=== PATIENT | female | born 1955 | race American Indian/Alaskan Native ===

== ENCOUNTER 2021-01-01 17:23 | Emergency (ER) | payer SELFPAY ==
[2021-01-01] MEDS ORDERED: LORazepam 2 MG TAB PO PRN ×2 (18:24)
[2021-01-01] MEDS ORDERED: NICOTINE 14 MG/24 HR PATCH TD ONE (18:29)
--- NOTE | 2021-01-01 18:30 | Emergency Department Report ---
Blank Doc - Documentation Documentation: 65-year-old female presents to the hospital for medical clearance for admission to [facility] for alcohol detox. Sent by Patient drinks liquor daily. Last drink prior to arrival. No history of withdrawal symptoms but has not stopped drinking long enough to develop wi thdrawal symptoms. Denies previous medical history. Positive smoker. BP elevated. Heart rate elevated Psych labs ordered for medical clearance. Banana bag IV fluids ordered. EKG requested. ciwa protocol ordered.
[2021-01-01 18:56] LABS: Basophils # (Auto) 0.1 K/mm3 (0.0-0.1); Basophils % (Auto) 0.6 % (0.0-1.8); Eosinophils # (Auto) 0.1 K/mm3 (0.0-0.4); Eosinophils % (Auto) 0.6 % (0.0-4.3); Hematocrit 47.2 % (30.3-42.9); Hemoglobin 15.7 gm/dl (10.1-14.3); Lymphocytes # (Auto) 2.3 K/mm3 (1.2-5.4); Lymphocytes % (Auto) 28.7 % (13.4-35.0); Mean Corpuscular HGB Conc 33 % (30-34); Mean Corpuscular Volume 103 fl (79-97); Monocytes # (Auto) 0.6 K/mm3 (0.0-0.8); Monocytes % (Auto) 7.6 % (0.0-7.3); Platelet Count 240 K/mm3 (140-440); Red Blood Count 4.56 M/mm3 (3.65-5.03); Red Cell Distribution Width 14.5 % (13.2-15.2)
[2021-01-01] MEDS ORDERED: THIAMINE 100 MG, FOLIC ACID 1 MG, MULTIPLE VITAMIN INJ, ADULT 10 ML in SODIUM CHLORIDE ... IV ONE (19:00)
[2021-01-01 19:11] LABS: Alanine Aminotransferase < 5 units/L (7-56); BUN/Creatinine Ratio 25; Blood Urea Nitrogen 10 mg/dL (7-17); Calcium 9.3 mg/dL (8.4-10.2); Hemolysis Index 125
[2021-01-01] MEDS ORDERED: SODIUM CHLORIDE 0.9% 1000 ML 1,000 ML IV ONE (22:20)
--- NOTE | 2021-01-02 00:48 | Emergency Department Report ---
ED General Adult HPI - General Chief complaint: Alcohol Stated complaint: MEDICAL CLEARANCE Time Seen by Provider: 01/01/21 19:10 Source: patient, family Mode of arrival: Wheelchair Limitations: Altered Mental Status - History of Present Illness Initial comments: The patient presents to the emergency department after being evaluated [facility] for medical clearance. Patient went to [facility] for alcohol detox and upon her arrival she was sent to the emergency department for medical evaluation. Patient has no complaints she denies chest pain, shortness breath, or headache. Patient states she drunk alcohol within the last 8 hours. -: unknown Severity scale (0 -10): 0 Improves with: none Worsens with: none Associated Symptoms: denies other symptoms Treatments Prior to Arrival: none - Related Data Allergies Allergy/AdvReac Type Severity Reaction Status Date / Time aspirin AdvReac Unknown Verified 01/01/21 17:34 ED Review of Systems ROS: Stated complaint: MEDICAL CLEARANCE Other details as noted in HPI Constitutional: denies: chills, fever Eyes: denies: eye pain, eye discharge, vision change ENT: denies: ear pain, throat pain Respiratory: denies: cough, shortness of breath, wheezing Cardiovascular: denies: chest pain, palpitations Endocrine: no symptoms reported Gastrointestinal: denies: abdominal pain, nausea, diarrhea Genitourinary: denies: urgency, dysuria, discharge Musculoskeletal: denies: back pain, joint swelling, arthralgia Skin: denies: rash, lesions Neurological: denies: headache, weakness, paresthesias Psychiatric: denies: anxiety, depression Hematological/Lymphatic: denies: easy bleeding, easy bruising ED Physical Exam - General Limitations: Altered Mental Status General appearance: alert, in no apparent distress - Head Head exam: Present: atraumatic, normocephalic - Eye Eye exam: Present: normal appearance, PERRL, EOMI - ENT ENT exam: Present: mucous membranes dry - Neck Neck exam: Present: normal inspection - Respiratory Respiratory exam: Present: normal lung sounds bilaterally. Absent: respiratory distress - Cardiovascular Cardiovascular Exam: Present: regular rate, tachycardia. Absent: systolic murmur, diastolic murmur, rubs, gallop - GI/Abdominal GI/Abdominal exam: Present: soft, normal bowel sounds. Absent: distended, tenderness - Extremities Exam Extremities exam: Present: normal inspection - Back Exam Back exam: Present: normal inspection - Neurological Exam Neurological exam: Present: alert, oriented X3, CN II-XII intact. Absent: motor sensory deficit - Psychiatric Psychiatric exam: Present: normal affect, normal mood - Skin Skin exam: Present: warm, dry, intact, normal color. Absent: rash ED Course Vital Signs 01/01/21 01/01/21 01/01/21 17:35 20:41 20:45 Temperature 98.2 F Pulse Rate 118 H 127 H 115 H Respiratory 18 33 H 19 Rate Blood Pressure 152/112 [Left] O2 Sat by Pulse 97 85 Oximetry 01/01/21 01/01/21 01/01/21 21:01 21:15 21:31 Temperature Pulse Rate 116 H 110 H 101 H Respiratory 25 H 25 H 28 H Rate Blood Pressure [Left] O2 Sat by Pulse 100 100 99 Oximetry 01/01/21 01/01/21 01/01/21 21:45 22:01 22:15 Temperature Pulse Rate 106 H 104 H 99 H Respiratory 27 H 28 H 25 H Rate Blood Pressure [Left] O2 Sat by Pulse 100 100 100 Oximetry 01/01/21 01/01/21 01/01/21 22:31 22:45 23:01 Temperature Pulse Rate 108 H 108 H 106 H Respiratory 25 H 27 H 26 H Rate Blood Pressure [Left] O2 Sat by Pulse 100 100 99 Oximetry 01/01/21 01/01/21 01/01/21 23:15 23:31 23:45 Temperature Pulse Rate 108 H 107 H 103 H Respiratory 27 H 26 H 15 Rate Blood Pressure [Left] O2 Sat by Pulse 98 99 100 Oximetry ED Medical Decision Making - Lab Data Result diagrams: 01/01/21 18:27 01/01/21 18:27 Lab Results 01/01/21 01/01/21 01/01/21 Range/Units 18:27 18:27 18:27 WBC 8.1 (4.5-11.0) K/mm3 RBC 4.56 (3.65-5.03) M/mm3 Hgb 15.7 H (10.1-14.3) gm/dl Hct 47.2 H (30.3-42.9) % MCV 103 H (79-97) fl MCH 35 H (28-32) pg MCHC 33 (30-34) % RDW 14.5 (13.2-15.2) % Plt Count 240 (140-440) K/mm3 Lymph % (Auto) 28.7 (13.4-35.0) % [place] % (Auto) 7.6 H (0.0-7.3) % Eos % (Auto) 0.6 (0.0-4.3) % Baso % (Auto) 0.6 (0.0-1.8) % Lymph # (Auto) 2.3 (1.2-5.4) K/mm3 [place] # (Auto) 0.6 (0.0-0.8) K/mm3 Eos # (Auto) 0.1 (0.0-0.4) K/mm3 Baso # (Auto) 0.1 (0.0-0.1) K/mm3 Seg Neutrophils % 62.5 (40.0-70.0) % Seg Neutrophils # 5.1 (1.8-7.7) K/mm3 Sodium 136 L (137-145) mmol/L Potassium 5.1 H (3.6-5.0) mmol/L Chloride 94.4 L (98-107) mmol/L Carbon Dioxide 26 (22-30) mmol/L Anion Gap 21 mmol/L BUN 10 (7-17) mg/dL Creatinine 0.4 L (0.6-1.2) mg/dL Estimated GFR > 60 ml/min BUN/Creatinine Ratio 25 % Glucose 101 H (65-100) mg/dL Calcium 9.3 (8.4-10.2) mg/dL Magnesium 1.50 L (1.7-2.3) mg/dL Total Bilirubin 0.60 (0.1-1.2) mg/dL AST 25 (5-40) units/L ALT < 5 L (7-56) units/L Alkaline Phosphatase 65 (35-129) units/L Total Protein 6.5 (6.3-8.2) g/dL Albumin 4.0 (3.9-5) g/dL Albumin/Globulin Ratio 1.6 % Plasma/Serum Alcohol 0.14 H (0-0.07) % - Radiology Data Radiology results: report reviewed - Medical Decision Making Patient received IV fluid bolus Patient was placed on CIWA protocol On repeat evaluation of the patient at 12:45 AM her heart rate is 95 bpm. Patient will be discharged so she can follow-up at [facility] Critical care attestation.: If time is entered above; I have spent that time in minutes in the direct care of this critically ill patient, excluding procedure time. ED Disposition Clinical Impression: Alcoholism Disposition: HOME / SELF CARE / HOMELESS Is pt being admited?: No Does the pt Need Aspirin: No Condition: Stable Instructions: Alcohol Abuse and Dependence Information, Adult Additional Instructions: Return if worse Please follow-up at [facility] for detox from alcohol Referrals: PRIMARY CAREMD [Primary Care Provider] - 3-5 Days OMERO MOHR MD [Staff Physician] - 3-5 Days Time of Disposition: 00:50
[2021-01-02 09:35] VITALS: BP 115/82
--- NOTE | 2021-01-08 14:30 | Electrocardiograph Report ---
[facility] Test Date: 2021-01-01 Test Time: 19:58:53 Pat Name: STEFANO NAVA Department: Room: Gender: F [employer]: : 1955 Requested By: SONYA PEÑA Order Number: [id number] Reading MD: Lilia Francis Measurements Intervals [place] Rate: 129 P: 80 [place]: 135 QRS: 84 QRSD: 73 T: 81 QT: 315 QTc: 462 Interpretive Statements Sinus tachycardia Very poor quality ECG Nonspecific ST changes No previous ECG available for comparison Electronically Signed On 01-08-2021 14:30:25 EDT by Lilia Francis
== END 2021-01-02 09:36 | disposition home or self-care (01) ==
LOC: ED 17:23
DX: F10.129 Alcohol abuse with intoxication, unspecified (principal); Z88.6 Allergy status to analgesic agent; Z79.899 Other long term (current) drug therapy; Y90.9 Presence of alcohol in blood, level not specified
CPT/HCPCS: 36415; 80053; 83735; 85025; 93005; 96361; 96365; 96366; 96375; 99283; J3411; J7030; 80320; G0480